=== PATIENT | male | born 1945 | race Hispanic/Latino ===

== ENCOUNTER 2018-07-17 01:04 | Emergency (ER) | payer SELFPAY ==
[2018-07-17 02:08] LABS: Basophils % (Auto) 0.3 % (0.0-1.8); Eosinophils # (Auto) 0.2 K/mm3 (0.0-0.4); Eosinophils % (Auto) 1.6 % (0.0-4.3); Hematocrit 42.8 % (35.5-45.6); Hemoglobin 14.9 gm/dl (11.8-15.2); Lymphocytes # (Auto) 2.1 K/mm3 (1.2-5.4); Lymphocytes % (Auto) 15.4 % (13.4-35.0); Mean Corpuscular HGB Conc 35 % (32-34); Mean Corpuscular Volume 92 fl (84-94); Monocytes # (Auto) 0.9 K/mm3 (0.0-0.8); Monocytes % (Auto) 6.6 % (0.0-7.3); Platelet Count 185 K/mm3 (140-440); Red Blood Count 4.63 M/mm3 (3.65-5.03); Red Cell Distribution Width 12.6 % (13.2-15.2)
[2018-07-17 02:15] LABS: BUN/Creatinine Ratio 27; Blood Urea Nitrogen 19 mg/dL (9-20); Calcium 8.8 mg/dL (8.4-10.2); Hemolysis Index 15
--- NOTE | 2018-07-17 02:45 | Emergency Department Report ---
HPI - General Chief Complaint: Psych Time Seen by Provider: 07/17/18 02:06 - HPI HPI: 72-year-old male presents to the emergency department to get out from a cold and get something to eat as the patient says that he is "poor and homeless." The patient admits that he said some things in triage that were not true so that he would be brought back to the emergency department and he hopes to be kept overnight. While the patient did mention suicidal ideations in triage, patient denies having any suicidal or homicidal ideations at admits to saying that only to get a roof over his head. Patient does have a history of bipolar disorder, PTSD and schizophrenia. He also has a seizure history. The patient says that he has not been on any medications since 2013, which was the last time that he had any insurance. Patient does admit to auditory and visual hallucinations, but says that this is a chronic issue for him and it is no worse than usual. ED Past Medical Hx - Past Medical History Hx Seizures: Yes Hx Psychiatric Treatment: Yes (Bipolar, PTSD, Anxiety, Paranoid schizophrenia) - Surgical History Past Surgical History?: No - Social History Smoking Status: Current Every Day Smoker Substance Use Type: Cocaine ED Review of Systems ROS: Stated complaint: SUICIDAL Other details as noted in HPI Comment: All other systems reviewed and negative Constitutional: denies: chills, fever Eyes: denies: eye pain, vision change ENT: denies: ear pain, throat pain Respiratory: denies: cough, shortness of breath Cardiovascular: denies: chest pain, palpitations Gastrointestinal: denies: abdominal pain, vomiting Genitourinary: denies: dysuria, frequency Musculoskeletal: denies: back pain, arthralgia Skin: denies: rash, lesions Neurological: denies: headache, weakness Physical Exam - Physical Exam Vital Signs: Vital Signs 07/17/18 07/17/18 01:11 01:17 Temperature 98.0 F 98 F Pulse Rate 91 H 89 Respiratory 18 18 Rate Blood Pressure 110/65 110/65 O2 Sat by Pulse 98 100 Oximetry Physical Exam: GENERAL: The patient is well-developed well-nourished. HEENT: Normocephalic. Atraumatic. Patient has moist mucous membranes. EYES: Extraocular motions are intact. NECK: Supple. Trachea is midline. CHEST/LUNGS: Clear to auscultation. There is no respiratory distress noted. HEART/CARDIOVASCULAR: Regular. There is no tachycardia. There is no obvious murmur. ABDOMEN: Abdomen is soft, nontender. Patient has normal bowel sounds. There is no abdominal distention. SKIN: Skin is warm and dry. NEURO: The patient is awake, alert, and oriented. The patient is cooperative. The patient has no focal neurologic deficits. The patient has normal speech. MUSCULOSKELETAL: There is no tenderness or deformity. There is no limitation range of motion. There is no evidence of acute injury. ED Course Vital Signs 07/17/18 07/17/18 01:11 01:17 Temperature 98.0 F 98 F Pulse Rate 91 H 89 Respiratory 18 18 Rate Blood Pressure 110/65 110/65 O2 Sat by Pulse 98 100 Oximetry ED Medical Decision Making - Lab Data Result diagrams: 07/17/18 01:40 07/17/18 01:40 - Medical Decision Making The patient presents because he is homeless and is looking for a place to sleep and some food. In order to get this, the patient told the triage nurse that he was feeling suicidal. The patient does have a history of bipolar disorder and schizophrenia. He denies any current depression, suicidal ideations or homicidal ideations. He does admit to having some hallucinations, he says it is chronic, and no worse than usual and these hallucinations are not giving him any commands. The patient is awake, alert, oriented to person/place/time. While the patient does occasionally ramble on tangents, he otherwise appears to have a normal decision making capacity at this time. He was seen by the psych environmental property assessor, Memo, who agrees the patient does not appear to require a 1013 or involuntary inpatient psychiatric treatment. The patient will be allowed to sleep in the emergency department for the next few hours, as long as the bed/room is not needed emergently, and he will see case management in the morning. Patient's labs have been unremarkable. Critical Care Time: No Critical care attestation.: If time is entered above; I have spent that time in minutes in the direct care of this critically ill patient, excluding procedure time. ED Disposition Clinical Impression: Discharge planning issues, Homeless, History of bipolar disorder, History of s chizophrenia Disposition: DC-01 TO HOME OR SELFCARE Is pt being admited?: No Condition: Stable Additional Instructions: Please follow up with a primary care physician in the next few days. Follow-up with the [facility] facility as needed. Return to the emergency department with any thoughts of harming yourself or others, or any acute distress. Referrals: [facility] [Outside] - 3-5 Days [facility] [place] [Outside] - 3-5 Days Time of Disposition: 04:46
[2018-07-18 13:12] VITALS: BP 110/65
== END 2018-07-17 13:38 | disposition home or self-care (01) ==
LOC: ED 01:04
DX: F31.9 Bipolar disorder, unspecified (principal); F20.9 Schizophrenia, unspecified; F17.200 Nicotine dependence, unspecified, uncomplicated; F14.10 Cocaine abuse, uncomplicated; Z59.0 Homelessness; Z88.8 Allergy status to other drugs, medicaments and biological substances
CPT/HCPCS: 36415; 80048; 85025; 99283; G0480; 80320

== ENCOUNTER 2018-07-17 13:19 | Emergency (ER) | payer SELFPAY | END 2018-07-17 13:45 | disposition left against medical advice (07) | LOC: ED 13:19 ==